=== PATIENT | female | born 1990 | race Caucasian/White ===

== ENCOUNTER 2019-05-29 18:05 | Emergency (ER) | payer OTHER ==
[~2019-05-29] VITALS: Ht 157.5 cm; Wt 52.2 kg
== END 2019-05-29 21:23 | disposition home or self-care (01) ==
LOC: ER 18:05
DX: J34.1 Cyst and mucocele of nose and nasal sinus (principal); J32.3 Chronic sphenoidal sinusitis; R51 Headache
CPT/HCPCS: 70551

== ENCOUNTER 2019-06-19 10:52 | Emergency (ER) | payer OTHER ==
[~2019-06-19] VITALS: Ht 157.5 cm; Wt 52.2 kg
[2019-06-19] MEDS ORDERED: ZITHROMAX500 MG PO (13:12)
[2019-06-19] MEDS ORDERED: MUCINEX1200 MG PO (13:12)
== END 2019-06-19 13:22 | disposition home or self-care (01) ==
LOC: ER 10:52
DX: J11.1 Influenza due to unidentified influenza virus with other respiratory manifestations (principal); B96.0 Mycoplasma pneumoniae [M. pneumoniae] as the cause of diseases classified elsewhere